=== PATIENT | male | born 1980 | race Two or more races ===

== ENCOUNTER 2018-11-28 07:56 | Emergency (ER) | payer SELFPAY ==
[~2018-11-28] VITALS: Ht 182.9 cm; Wt 119.7 kg
[2018-11-28] MEDS ORDERED: ONDANSETRON PF 4 MG/2 ML VIAL. IV ONE (08:15)
[2018-11-28] MEDS ORDERED: IV NORMAL SALINE 1000ML BAG 1,000 ML IV ONE (08:15)
[2018-11-28] MEDS ORDERED: fentaNYL PF VIAL 100 MCG/2 ML VIAL IV ONE (08:15)
[2018-11-28 08:42] LABS: BASO % 0 % (0-3); EOS # 0.2 x10^3/uL (0.0-0.7); EOS % 3 % (0-3); HEMATOCRIT 48.7 % (39.0-53.0); HEMOGLOBIN 17.1 g/dL (13.0-17.5); LYMPH # 2.4 x10^3/uL (1.0-4.8); LYMPH % 35 % (24-48); MEAN CORPUSCULAR HEMOGLOBIN 31 pg (25-35); MEAN CORPUSCULAR HGB CONC 35 g/dL (31-37); MEAN CORPUSCULAR VOLUME 88 fL (79-100); MONO # 0.6 x10^3/uL (0.0-1.1); MONO % 9 % (0-9); NEUT # 3.5 x10^3uL (1.8-7.7); NEUT % 52 % (31-73); PLATELET COUNT 226 x10^3/uL (140-400); RED BLOOD COUNT 5.53 x10^6/uL (4.30-5.70); RED CELL DISTRIBUTION WIDTH 13.1 % (11.5-14.5); WHITE BLOOD COUNT 6.8 x10^3/uL (4.0-11.0)
[2018-11-28 08:45] LABS: BILIRUBIN,URINE NEGATIVE (NEG); CLARITY,URINE CLEAR; COLOR,URINE YELLOW; NITRITE,URINE NEGATIVE (NEG); PROTEIN,URINE NEGATIVE (NEG-TRACE); UROBILINOGEN,URINE 0.2 mg/dL (0.2 mg/dL)
[2018-11-28 08:49] LABS: CALCIUM 8.9 mg/dL (8.5-10.1); CREATININE 0.8 mg/dL (0.7-1.3); GFR 107.1; POTASSIUM 4.4 mmol/L (3.5-5.1)
[2018-11-28 08:51] LABS: BACTERIA,URINE 0 /HPF (0-FEW); RBC,URINE 0 /HPF (0-2); WBC,URINE 0 /HPF (0-4)
[2018-11-28 08:53] LABS: ALBUMIN 3.8 g/dL (3.4-5.0); ALBUMIN/GLOBULIN RATIO 1.1 (1.0-1.7); TOTAL BILIRUBIN 0.4 mg/dL (0.2-1.0); TOTAL PROTEIN 7.3 g/dL (6.4-8.2)
--- NOTE | 2018-11-28 08:59 | RAD ---
Right upper quadrant abdominal ultrasound History: RUQ PAIN Comparison: None. Technique: Transabdominal ultrasound images are obtained. Findings: Visualized pancreas is unremarkable. Liver is increased in echogenicity. There is relative hypoechogenicity along the gallbladder fossa. There is decreased through-transmission in the liver. Right hepatic lobe measures 15.4 cm. Portal flow is hepatopedal. Gallbladder sludge is seen. Gallbladder wall thickness is 2-3 mm. Sonographic Montiel sign is negative. Common bile duct caliber is normal measuring 5 mm in diameter. The right kidney measures 12.6 cm in length and is without evidence of obstruction. Normal cortical echotexture. IVC is patent. IMPRESSION: 1. Gallbladder sludge. Gallbladder otherwise normal. 2. Fatty infiltration of the liver with focal fatty sparing along the gallbladder fossa. Electronically signed by: Ruben Tuttle MD (11/28/2018 8:56 AM) [id number]
[2018-11-28 09:06] VITALS: BP 148/84
[2018-11-28] MEDS ORDERED: RANI300T3 PO (09:24)
--- NOTE | 2018-11-28 09:25 | PHYS DOC ---
Past Medical History Past Medical History: Hypertension Past Surgical History: Other Additional Past Surgical Histo: HERNIA Alcohol Use: Heavy Drug Use: None Adult General Chief Complaint Chief Complaint: ABDOMINAL PAIN HPI HPI 38-year-old otherwise healthy male who does drink a fair bit of alcohol presents with a 2 day history of right upper quadrant abdominal pain. He states the pain does radiate to his back. He has had some associated nausea but he states eating doesn't necessarily make it better or worse. He denies any melena or hematemesis. Had any fever chills or sweats. He denies any dysuria. He states it has been a couple days since he's had a bowel movement.] Review of Systems Review of Systems Constitutional: Denies fever or chills [] Eyes: Denies change in visual acuity, redness, or eye pain [] HENT: Denies nasal congestion or sore throat [] Respiratory: Denies cough or shortness of breath [] Cardiovascular: No additional information not addressed in HPI [] GI: Per history of present illness[] : Denies dysuria or hematuria [] Musculoskeletal: Denies back pain or joint pain [] Integument: Denies rash or skin lesions [] Neurologic: Denies headache, focal weakness or sensory changes [] Endocrine: Denies polyuria or polydipsia [] All other systems were reviewed and found to be within normal limits, except as documented in this note. Current Medications Current Medications Current Medications Medications (Trade) Dose Ordered Sig/Satish Start Time Stop Time Status Last Admin Dose Admin Fentanyl Citrate (Fentanyl 2ml Vial) 50 mcg 1X ONCE 11/28/18 08:15 11/28/18 08:17 DC 11/28/18 08:34 50 MCG Ondansetron HCl (Zofran) 4 mg 1X ONCE 11/28/18 08:15 11/28/18 08:17 DC 11/28/18 08:33 4 MG Sodium Chloride 1,000 ml @ 1,000 mls/hr 1X ONCE 11/28/18 08:15 11/28/18 09:14 DC 11/28/18 08:32 1,000 MLS/HR Allergies Allergies Allergies Coded Allergies Type Severity Reaction Last Updated Verified No Known Drug Allergies 11/28/18 No Physical Exam Physical Exam Constitutional: Well developed, well nourished, mild distress, non-toxic appearance. [] HENT: Normocephalic, atraumatic, bilateral external ears normal, oropharynx moist, no oral exudates, nose normal. [] Eyes: PERRLA, EOMI, conjunctiva normal, no discharge. [] Neck: Normal range of motion, no tenderness, supple, no stridor. [] Cardiovascular:Heart rate regular rhythm, no murmur [] Lungs & Thorax: Bilateral breath sounds clear to auscultation [] Abdomen: Right upper quadrant is mildly tender to palp along with the epigastric area. There is a negative Montiel's sign there is no pulsatile mass noted, no right lower quadrant tenderness no rebound or guarding. [] Skin: Warm, dry, no erythema, no rash. [] Back: No tenderness, no CVA tenderness. [] Extremities: No tenderness, no cyanosis, no clubbing, ROM intact, no edema. [] Neurologic: Alert and oriented X 3, normal motor function, normal sensory function, no focal deficits noted. [] Psychologic: Anxious. [] Current Patient Data Vital Signs Vital Signs Date Time Temp Pulse Resp B/P (MAP) Pulse Ox O2 Delivery O2 Flow Rate FiO2 11/28/18 09:17 16 95 Room Air 11/28/18 08:36 64 163/97 (119) 11/28/18 08:25 98.1 98.1 Lab Values Laboratory Tests Test 11/28/18 08:10 11/28/18 08:20 Urine Collection Type Unknown Urine Color Yellow Urine Clarity Clear Urine pH 6.0 Urine Specific [place] 1.020 Urine Protein Negative mg/dL (NEG-TRACE) Urine Glucose (UA) Negative mg/dL (NEG) Urine Ketones (Stick) Negative mg/dL (NEG) Urine Blood Negative (NEG) Urine Nitrite Negative (NEG) Urine Bilirubin Negative (NEG) Urine Urobilinogen Dipstick 0.2 mg/dL (0.2 mg/dL) Urine Leukocyte Esterase Negative (NEG) Urine RBC 0 /HPF (0-2) Urine WBC 0 /HPF (0-4) Urine Bacteria 0 /HPF (0-FEW) Urine Mucus Slight /LPF White Blood Count 6.8 x10^3/uL (4.0-11.0) Red Blood Count 5.53 x10^6/uL (4.30-5.70) Hemoglobin 17.1 g/dL (13.0-17.5) Hematocrit 48.7 % (39.0-53.0) Mean Corpuscular Volume 88 fL (79-100) Mean Corpuscular Hemoglobin 31 pg (25-35) Mean Corpuscular Hemoglobin Concent 35 g/dL (31-37) Red Cell Distribution Width 13.1 % (11.5-14.5) Platelet Count 226 x10^3/uL (140-400) Neutrophils (%) (Auto) 52 % (31-73) Lymphocytes (%) (Auto) 35 % (24-48) Monocytes (%) (Auto) 9 % (0-9) Eosinophils (%) (Auto) 3 % (0-3) Basophils (%) (Auto) 0 % (0-3) Neutrophils # (Auto) 3.5 x10^3uL (1.8-7.7) Lymphocytes # (Auto) 2.4 x10^3/uL (1.0-4.8) Monocytes # (Auto) 0.6 x10^3/uL (0.0-1.1) Eosinophils # (Auto) 0.2 x10^3/uL (0.0-0.7) Basophils # (Auto) 0.0 x10^3/uL (0.0-0.2) Sodium Level 143 mmol/L (136-145) Potassium Level 4.4 mmol/L (3.5-5.1) Chloride Level 106 mmol/L (98-107) Carbon Dioxide Level 28 mmol/L (21-32) Anion Gap 9 (6-14) Blood Urea Nitrogen 12 mg/dL (8-26) Creatinine 0.8 mg/dL (0.7-1.3) Estimated GFR (Cockcroft-Gault) 107.1 BUN/Creatinine Ratio 15 (6-20) Glucose Level 103 mg/dL (70-99) H Calcium Level 8.9 mg/dL (8.5-10.1) Total Bilirubin 0.4 mg/dL (0.2-1.0) Aspartate Amino Transferase (AST) 26 U/L (15-37) Alanine Aminotransferase (ALT) 81 U/L (16-63) H Alkaline Phosphatase 97 U/L (46-116) Total Protein 7.3 g/dL (6.4-8.2) Albumin 3.8 g/dL (3.4-5.0) Albumin/Globulin Ratio 1.1 (1.0-1.7) Lipase 164 U/L (73-393) Laboratory Tests 11/28/18 08:20 Laboratory Tests 11/28/18 08:20 EKG EKG [] Radiology/Procedures Radiology/Procedures [] Impressions: Right upper quadrant abdominal ultrasound History: RUQ PAIN Comparison: None. Technique: Transabdominal ultrasound images are obtained. Findings: Visualized pancreas is unremarkable. Liver is increased in echogenicity. There is relative hypoechogenicity along the gallbladder fossa. There is decreased through-transmission in the liver. Right hepatic lobe measures 15.4 cm. Portal flow is hepatopedal. Gallbladder sludge is seen. Gallbladder wall thickness is 2-3 mm. Sonographic Montiel sign is negative. Common bile duct caliber is normal measuring 5 mm in diameter. The right kidney measures 12.6 cm in length and is without evidence of obstruction. Normal cortical echotexture. IVC is patent. IMPRESSION: 1. Gallbladder sludge. Gallbladder otherwise normal. 2. Fatty infiltration of the liver with focal fatty sparing along the gallbladder fossa. Course & Med Decision Making Course & Med Decision Making Pertinent Labs and Imaging studies reviewed. (See chart for details) [ED course: Evaluation reveals a 38-year-old male who does drink alcohol presents with a right upper quadrant pain. His gallbladder ultrasound does show some gallbladder sludge but no stones no wall thickening no surrounding inflammation. He does not have a white count or fever. I suspect he may have some gastritis I will start him on some Zantac as an outpatient. At this time I feel the patient is stable for discharge home with follow-up with his primary care physician should his symptoms worsen.] Dragon Disclaimer Dragon Disclaimer This electronic medical record was generated, in whole or in part, using a voice recognition dictation system. Departure Departure Impression: Primary Impression: Right upper quadrant pain Additional Impression: Gastritis Disposition: 01 HOME, SELF-CARE Condition: IMPROVED Referrals: NO PCP (PCP) Patient Instructions: Abdominal Pain, Gastritis, Adult Additional Instructions: Follow with her primary care physician in the next week. Return to the emergency department with any new or concerning symptoms Scripts Ranitidine Hcl (ZANTAC) 300 Mg Tablet 1 TAB PO QHS for reflux, #90 TAB 3 Refills Prov: KYLE LI DO 11/28/18 Problem Qualifiers Additional Impression: Gastritis Gastritis type: alcoholic Chronicity: acute Gastritis bleeding: without bleeding Qualified Codes: K29.20 - Alcoholic gastritis without bleeding KYLE LI DO Nov 28, 2018 09:25
== END 2018-11-28 09:34 | disposition home or self-care (01) ==
LOC: ER 07:56
DX: K29.20 Alcoholic gastritis without bleeding (principal); I10 Essential (primary) hypertension; F10.20 Alcohol dependence, uncomplicated; Y90.9 Presence of alcohol in blood, level not specified; Z98.890 Other specified postprocedural states
CPT/HCPCS: 36415; 76705; 80053; 81001; 83690; 85025; 96361; 96374; 96375; 99284; J2405; J3010; J7030

== ENCOUNTER 2021-10-07 17:48 | Emergency (ER) | payer SELFPAY ==
[~2021-10-07] VITALS: Ht 182.9 cm; Wt 127.3 kg
[~2021-10-07 17:48] MED LIST: RANI300T3 PO
[2021-10-07 21:15] LABS: BASO % 0 % (0-3); EOS # 0.3 x10^3/uL (0.0-0.7); EOS % 4 % (0-3); HEMATOCRIT 44.4 % (39.0-53.0); HEMOGLOBIN 15.8 g/dL (13.0-17.5); LYMPH # 1.5 x10^3/uL (1.0-4.8); LYMPH % 19 % (24-48); MEAN CORPUSCULAR HEMOGLOBIN 31 pg (25-35); MEAN CORPUSCULAR HGB CONC 36 g/dL (31-37); MEAN CORPUSCULAR VOLUME 88 fL (79-100); MONO # 0.7 x10^3/uL (0.0-1.1); MONO % 9 % (0-9); NEUT # 5.4 x10^3/uL (1.8-7.7); NEUT % 69 % (31-73); PLATELET COUNT 210 x10^3/uL (140-400); RED BLOOD COUNT 5.04 x10^6/uL (4.30-5.70); WHITE BLOOD COUNT 7.8 x10^3/uL (4.0-11.0)
[2021-10-07] MEDS ORDERED: fentaNYL PF VIAL 100 MCG/2 ML VIAL IVP ONE (21:15)
[2021-10-07] MEDS ORDERED: ONDANSETRON PF 4 MG/2 ML VIAL. IVP ONE (21:15)
[2021-10-07] MEDS ORDERED: IV NORMAL SALINE 1000ML BAG 1,000 ML IV ONE (21:15)
--- NOTE | 2021-10-07 21:33 | PHYS DOC ---
Past Medical History Past Medical History: Hypertension (DARCY KUHN APRN) Past Surgical History: Other Additional Past Surgical Histo: HERNIA (DARCY KUHN APRN) Smoking Status: Current Every Day Smoker Alcohol Use: Heavy Drug Use: None (DARCY KUHN APRN) General Adult EDM: Chief Complaint: FLANK PAIN HPI: HPI: Patient is a 41-year-old male presenting to the emergency department for abdominal pain. Patient is finished speaking only interpretive services was used for this HPI. According to the patient he has been having abdominal pain since Monday, patient states that that he has had nausea and vomiting since Monday, he states his pain is in the right lower quadrant, he denies blood in his urine, diarrhea, fever, chest pain or chills. Patient states he is also had a cough, but also comments that he does smoke pretty heavily. (DARCY KUHN APRN) Review of Systems: Review of Systems: Constitutional: Denies fever or chills. [] Eyes: Denies change in visual acuity. [] HENT: Denies nasal congestion or sore throat. [] Respiratory: Denies cough or shortness of breath. [] Cardiovascular: Denies chest pain or edema. [] GI: Denies abdominal pain, nausea, vomiting, bloody stools or diarrhea. [] : Denies dysuria. [] Musculoskeletal: Denies back pain or joint pain. [] Integument: Denies rash. [] Neurologic: Denies headache, focal weakness or sensory changes. [] Endocrine: Denies polyuria or polydipsia. [] Lymphatic: Denies swollen glands. [] Psychiatric: Denies depression or anxiety. [] (DARCY KUHN [employer]PER[employer] ENGINEER) Heart Score: C/O Chest Pain: N/A Risk Factors: Risk Factors: DM, Current or recent (<one month) smoker, HTN, HLP, family history of CAD, obesity. Risk Scores: Score 0 - 3: 2.5% MACE over next 6 weeks - Discharge Home Score 4 - 6: 20.3% MACE over next 6 weeks - Admit for Clinical Observation Score 7 - 10: 72.7% MACE over next 6 weeks - Early Invasive Strategies (DARCY KUHN APRN) Current Medications: Current Medications Medications (Trade) Dose Ordered Sig/Satish Start Time Stop Time Status Last Admin Dose Admin Fentanyl Citrate (Fentanyl 2ml Vial) 50 mcg 1X ONCE 10/07/21 21:15 10/07/21 21:16 DC Ondansetron HCl (Zofran) 4 mg 1X ONCE 10/07/21 21:15 10/07/21 21:16 DC Sodium Chloride 1,000 ml @ 999 mls/hr 1X ONCE 10/07/21 21:15 10/07/21 22:15 (DARCY KUHN APRN) Allergies: Allergies: Allergies Coded Allergies Type Severity Reaction Last Updated Verified No Known Drug Allergies 11/28/18 No (DARCY KUHN APRN) Physical Exam: PE: Constitutional: Well developed, well nourished, MODERATE distress, non-toxic appearance. [] HENT: Normocephalic, atraumatic, bilateral external ears normal, oropharynx moist, no oral exudates, nose normal. [] Eyes: PERRLA, EOMI, conjunctiva normal, no discharge. [] Neck: Normal range of motion, no tenderness, supple, no stridor. [] Cardiovascular:Heart rate regular rhythm, no murmur [] Lungs & Thorax: Bilateral breath sounds clear to auscultation [] Abdomen: Bowel sounds HYPERACTIVE, TENDERNESS WITH PALPATION TO RIGHT LOWER QUADRANT, pain at McBurney's point Skin: Warm, dry, no erythema, no rash. [] Back: No tenderness, no CVA tenderness. [] Extremities: No tenderness, no cyanosis, no clubbing, ROM intact, no edema. [] Neurologic: Alert and oriented X 3, normal motor function, normal sensory function, no focal deficits noted. [] Psychologic: Affect normal, judgement normal, mood normal. [] (DARCY KUHN APRN) Current Patient Data: Labs: Laboratory Tests Test 10/07/21 20:10 White Blood Count 7.8 x10^3/uL (4.0-11.0) Red Blood Count 5.04 x10^6/uL (4.30-5.70) Hemoglobin 15.8 g/dL (13.0-17.5) Hematocrit 44.4 % (39.0-53.0) Mean Corpuscular Volume 88 fL (79-100) Mean Corpuscular Hemoglobin 31 pg (25-35) Mean Corpuscular Hemoglobin Concent 36 g/dL (31-37) Red Cell Distribution Width 13.0 % (11.5-14.5) Platelet Count 210 x10^3/uL (140-400) Neutrophils (%) (Auto) 69 % (31-73) Lymphocytes (%) (Auto) 19 % (24-48) L Monocytes (%) (Auto) 9 % (0-9) Eosinophils (%) (Auto) 4 % (0-3) H Basophils (%) (Auto) 0 % (0-3) Neutrophils # (Auto) 5.4 x10^3/uL (1.8-7.7) Lymphocytes # (Auto) 1.5 x10^3/uL (1.0-4.8) Monocytes # (Auto) 0.7 x10^3/uL (0.0-1.1) Eosinophils # (Auto) 0.3 x10^3/uL (0.0-0.7) Basophils # (Auto) 0.0 x10^3/uL (0.0-0.2) Laboratory Tests 10/07/21 20:10 Vital Signs: Vital Signs Date Time Temp Pulse Resp B/P (MAP) Pulse Ox O2 Delivery O2 Flow Rate FiO2 10/07/21 20:00 98.6 75 14 200/95 (130) 96 Room Air 98.6 (JULIANN KUHNEN [employer]ATING [employer]PER[employer] ENGINEER) EKG: EKG: [] (JULIANN KUHNEN [employer]ATING OPERAT[employer] ENGINEER) Radiology/Procedures: Radiology/Procedures: REASON: ABDOMINAL PAIN PROCEDURE: CT ABD PELV W/ IV CONTRST ONLY Study: CT abdomen/pelvis with intravenous contrast Indication: Abdominal pain. Comparison: None. Technique: Helical CT imaging performed of the abdomen and pelvis after the intravenous administration of 75 cc Omnipaque 300 contrast. Sagittal and coronal reformats were obtained. One or more of the following individualized dose reduction techniques were utilized for this examination: 1. Automated exposure control 2. Adjustment of the mA and/or kV according to patient size 3. Use of iterative reconstruction technique. Findings: Chest: Bilateral gynecomastia. Calcific coronary artery disease. A partially imaged 6 mm nodule appears to have a central area of mineralization. Mild bibasilar volume loss. Liver: Hepatic steatosis. Gallbladder/Biliary Tree: Unremarkable. Pancreas: Very faint haziness of the fat around the pancreatic head/uncinate process. Parenchymal attenuation is relatively homogeneous. No ductal dilatation. Spleen: Upper limits of normal for size. Adrenal Glands: Normal morphology. Kidneys/Ureters/Bladder: Unremarkable renal parenchyma. No stone or hydronephrosis. Normal bladder. Reproductive Organs: Unremarkable. Colon: Mild volume stool burden. Appendix: Normal. Small Bowel: Normal course and caliber. Stomach: Unremarkable. Vasculature: Within normal limits. Lymph Nodes: A few mildly prominent central upper abdominal lymph nodes favored reactive. Mild haziness of the central mesentery along the vascular pedicle. Mesenteric and retroperitoneal lymph nodes are subcentimeter in size. Peritoneum and Body Wall: No free fluid or pneumoperitoneum. No complex body wall hernia. Bones: No acute or aggressive abnormality. Mild lumbar levocurvature. Moderate discogenic arthrosis at L5-S1 and mild disc space height loss at L4-L5. Left more so than right osseous neural foraminal stenosis at L5-S1. Miscellaneous: None. Impression: 1. Minimal haziness around the pancreatic body and uncinate process and extending down along a portion of the mesentery. This can be seen chronically though in the appropriate clinical setting very mild active pancreatitis is possible. Recommend correlation with lipase levels. No potentially acute abnormality elsewhere throughout the abdomen or pelvis. 2. Hepatic steatosis. Upper limits of normal size of the spleen. Calcific coronary artery disease. Gynecomastia. Electronically signed by: SOFIYA ALLEN MD (10/07/2021 10:21 PM) [facility] DICTATED and SIGNED BY: SOFIYA ALLEN MD DATE: 10/07/21 [id number][] (DARCY KUHN APRN) Course & Med Decision Making: Course & Med Decision Making Pertinent Labs and Imaging studies reviewed. (See chart for details) [] (DARCY KUHN APRN) Course & Med Decision Making I did not see/discuss this patient with my midlevel provider. After reviewing CT imaging I would have recommended to order a lipase and perform repeat physical exam. I would admit this patient if they were still having abdominal pain. ([facility]) Marco Disclaimer: Marco Disclaimer: This electronic medical record was generated, in whole or in part, using a voice recognition dictation system. (DARCY KUHN [employer]PER[employer] ENGINEER) Departure Departure Impression: Primary Impression: Abdominal pain Qualified Codes: R10.31 - Right lower quadrant pain Disposition: HOME / SELF CARE / HOMELESS Condition: STABLE Referrals: NO PCP (PCP) Patient Instructions: Abdominal Pain, Clear Liquid Diet, Diet for Gastroesophageal Reflux Disease, Adult Scripts Ondansetron (ONDANSETRON ODT) 4 Mg Tab.rapdis 1 TAB PO PRN Q6-8HRS, #16 TAB Prov: DARCY KUHN [employer] ENGINEER 10/08/21 Hydrocodone Bit/Acetaminophen (HYDROCODONE-APAP 5-325 ) 1 Tab Tablet 1 TAB PO PRN Q6HRS PRN for PAIN, #15 TAB 0 Refills Prov: DARCY KUHN APRN 10/08/21 DARCY KUHN APRN Oct 07, 2021 21:33 CINDY ORR DO Oct 08, 2021 20:14
[2021-10-07 21:38] LABS: CALCIUM 8.4 mg/dL (8.5-10.1); CREATININE 0.9 mg/dL (0.7-1.3); GFR 92.1; POTASSIUM 3.8 mmol/L (3.5-5.1)
[2021-10-07 21:44] LABS: ALBUMIN 3.9 g/dL (3.4-5.0); TOTAL BILIRUBIN 0.4 mg/dL (0.2-1.0); TOTAL PROTEIN 7.7 g/dL (6.4-8.2)
[2021-10-07] MEDS ORDERED: IOHEXOL 300 MG/ML 100ML VIAL. IV ONE (22:15)
[2021-10-07] MEDS ORDERED: KETOROLAC 30 MG/ML VIAL. IVP ONE (22:15)
--- NOTE | 2021-10-07 22:23 | RAD ---
Study: CT abdomen/pelvis with intravenous contrast Indication: Abdominal pain. Comparison: None. Technique: Helical CT imaging performed of the abdomen and pelvis after the intravenous administratio n of 75 cc Omnipaque 300 contrast. Sagittal and coronal reformats were obtained. One or more of the following individualized dose reduction techniques were utilized for this examinat ion: 1. Automated exposure control 2. Adjustment of the mA and/or kV according to patient size 3. Use of iterative reconstruction technique. Findings: Chest: Bilateral gynecomastia. Calcific coronary artery disease. A partially imaged 6 mm nodule appea rs to have a central area of mineralization. Mild bibasilar volume loss. Liver: Hepatic steatosis. Gallbladder/Biliary Tree: Unremarkable. Pancreas: Very faint haziness of the fat around the pancreatic head/uncinate process. Parenchymal att enuation is relatively homogeneous. No ductal dilatation. Spleen: Upper limits of normal for size. Adrenal Glands: Normal morphology. Kidneys/Ureters/Bladder: Unremarkable renal parenchyma. No stone or hydronephrosis. Normal bladder. Reproductive Organs: Unremarkable. Colon: Mild volume stool burden. Appendix: Normal. Small Bowel: Normal course and caliber. Stomach: Unremarkable. Vasculature: Within normal limits. Lymph Nodes: A few mildly prominent central upper abdominal lymph nodes favored reactive. Mild hazine ss of the central mesentery along the vascular pedicle. Mesenteric and retroperitoneal lymph nodes ar e subcentimeter in size. Peritoneum and Body Wall: No free fluid or pneumoperitoneum. No complex body wall hernia. Bones: No acute or aggressive abnormality. Mild lumbar levocurvature. Moderate discogenic arthrosis a t L5-S1 and mild disc space height loss at L4-L5. Left more so than right osseous neural foraminal st enosis at L5-S1. Miscellaneous: None. Impression: 1. Minimal haziness around the pancreatic body and uncinate process and extending down along a porti on of the mesentery. This can be seen chronically though in the appropriate clinical setting very mil d active pancreatitis is possible. Recommend correlation with lipase levels. No potentially acute abn ormality elsewhere throughout the abdomen or pelvis. 2. Hepatic steatosis. Upper limits of normal size of the spleen. Calcific coronary artery disease. G ynecomastia. Electronically signed by: SOFIYA ALLEN MD (10/07/2021 10:21 PM) [facility]
[2021-10-07] MEDS ORDERED: CONTRAST GIVEN. MC PRN (22:30)
[2021-10-08 00:22] LABS: BILIRUBIN,URINE NEGATIVE (NEG); CLARITY,URINE CLEAR; COLOR,URINE YELLOW; NITRITE,URINE NEGATIVE (NEG); PROTEIN,URINE NEGATIVE (NEG-TRACE); UROBILINOGEN,URINE 0.2 mg/dL (0.2 mg/dL)
[2021-10-08 00:44] LABS: BACTERIA,URINE 0 /HPF (0-FEW); RBC,URINE OCC /HPF (0-2); WBC,URINE 0 /HPF (0-4)
[2021-10-08] MEDS ORDERED: HYDR-2761 PO (01:09)
[2021-10-08] MEDS ORDERED: ONDA4TAB12 PO (01:11)
[2021-10-08 01:20] VITALS: BP 150/82
[2021-10-10] MEDS ORDERED: METF850T8 PO (15:30)
[2021-10-10] MEDS ORDERED: PANT40TA77 PO (15:30)
[2021-10-10] MEDS ORDERED: BUPR150T15 PO (15:30)
[2021-10-10] MEDS ORDERED: LOSA-73 PO (15:30)
[2021-10-10] MEDS ORDERED: ATOR40TA59 PO (15:30)
[2021-10-10] MEDS ORDERED: ALLO300T PO (15:30)
[2021-10-10] MEDS ORDERED: ASPI-630 PO (15:30)
[2021-10-11] MEDS ORDERED: PANT40TA77 PO (10:10)
[2021-10-11] MEDS ORDERED: POLY17PO52 PO (10:10)
[2021-10-11] MEDS ORDERED: OXYC1TAB15 PO (10:10)
== END 2021-10-08 01:20 | disposition home or self-care (01) ==
LOC: ER 17:48
DX: R10.31 Right lower quadrant pain (principal); R11.2 Nausea with vomiting, unspecified; I10 Essential (primary) hypertension; F17.200 Nicotine dependence, unspecified, uncomplicated
CPT/HCPCS: 36415; 74177; 80053; 81001; 83605; 85025; 96361; 96374; 96375; 99285; J1885; J2405; J3010; J7030; Q9967